=== PATIENT | male | born 1970 | race African-American/Black ===

== ENCOUNTER 2020-05-03 17:12 | Emergency (ER) | payer OTHER ==
[~2020-05-03] VITALS: Ht 182.9 cm; Wt 222.3 kg
[2020-05-03 19:57] LABS: Basophils # (auto) 0.1 10 ^3/uL (0-0.2); Basophils % (auto) 0.7 % (0.0-2.0); Eosinophils # (auto) 0.1 10 ^3/uL (0-0.8); Eosinophils % (auto) 0.9 % (0.0-7.0); Hematocrit 47.7 % (41.0-53.0); Hemoglobin 15.6 g/dL (13.5-17.5); Lymphocytes # (auto) 2.2 10 ^3/uL (0.4-5.4); Lymphocytes % (auto) 17.8 % (10.0-50.0); Mean Corpuscular Hemoglobin 27.5 pg (28.0-32.0); Mean Corpuscular Hgb Conc. 32.7 g/dL (32.0-36.0); Mean Corpuscular Volume 84.1 fL (80.0-100.0); Monocytes # (auto) 1.6 10 ^3/uL (0-1.3); Monocytes % (auto) 13.2 % (0.0-12.0); Neutrophils # (auto) 8.3 10 ^3/uL (1.6-8.6); Neutrophils % (auto) 67.4 % (37.0-80.0); Nucleated Red Blood Cells % 0.1 %; Platelet Count (auto) 302 10^3/uL (140-450); Red Blood Cells 5.67 10^6/uL (4.5-5.90); Red Cell Distribution Width 15.2 % (11.8-14.3); White Blood Cell 12.3 10^3/uL (4.4-10.8)
[2020-05-03 20:09] LABS: Albumin 3.5 g/dL (3.4-5.0); Calcium 9.5 mg/dL (8.5-10.1); Potassium 4.3 mmol/L (3.5-5.1)
[2020-05-03 20:13] LABS: BUN/Creatinine Ratio 13.9; Bilirubin, Total 0.4 mg/dL (0.2-1.0); Total Protein 8.6 g/dL (6.4-8.2)
[2020-05-03 20:23] VITALS: BP 152/88
== END 2020-05-03 20:33 | disposition home or self-care (01) ==
LOC: ER 17:12
DX: L03.116 Cellulitis of left lower limb (principal); I48.91 Unspecified atrial fibrillation; E66.9 Obesity, unspecified; Z68.44 Body mass index [BMI] 60.0-69.9, adult
CPT/HCPCS: 36415; 80053; 83880; 85025; 93005; 93971

== ENCOUNTER 2020-05-16 15:28 | Emergency (ER) | payer OTHER ==
[~2020-05-16] VITALS: Ht 182.9 cm; Wt 222.3 kg
[2020-05-16 16:06] VITALS: BP 141/86
== END 2020-05-16 18:28 | disposition home or self-care (01) ==
LOC: ER 15:28
DX: L03.116 Cellulitis of left lower limb (principal)